=== PATIENT | male | born 1975 | race African-American/Black ===

== ENCOUNTER 2024-07-08 20:52 | Emergency (ER) | payer OTHER ==
[2024-07-08 21:07] VITALS: BP 135/76; PULSE 77; RESP 18; TEMP 98.1; BMI 27.9
[2024-07-08] MEDS ORDERED: KETOROLAC TROMETHAMINE 30 MG/1 ML VIAL ONE (23:12)
[2024-07-08] MEDS: KETOROLAC TROMETHAMINE 30 MG/1 ML VIAL IM ONE (23:17)
== END 2024-07-08 23:24 | disposition home or self-care (01) ==
LOC: JER 20:52
PROC: 3E0133Z Introduction of Anti-inflammatory into Subcutaneous Tissue, Percutaneous Approach (ICD-10-PCS; principal; 2024-07-08)
DX: S22.41XA Multiple fractures of ribs, right side, initial encounter for closed fracture (principal); V49.50XA Passenger injured in collision with unspecified motor vehicles in traffic accident, initial encounter
CPT/HCPCS: 99284-25